=== PATIENT | female | born 1985 | race Caucasian/White ===

== ENCOUNTER 2021-01-06 20:50 | Emergency (ER) | payer OTHER ==
[~2021-01-06 20:50] MED LIST: ATIVAN0.5 MG PO; BENTYL10 MG PO; DESYREL50 MG PO; FLUOXETINE HCL20 M1 PO; K-DUR20 MEQ PO; LEVSIN0.125 MG PO; ONDANSETRON ODT4 MG SL; PREDNISONE 20MG20 MG PO; PRILOSEC20 MG PO; RANITIDINE HCL150 M1 PO; VOLTAREN **OUT75 MG PO
[2021-01-07 02:52] LABS: BILIRUBIN NEGATIVE (NEGATIVE); BLOOD TRACE-INTACT Ery/uL (NEGATIVE); CLARITY CLEAR (CLEAR); COLOR YELLOW (YELLOW); GLUCOSE (U) NORMAL (NORMAL); HCG (URINE) SCREEN NEGATIVE (NEGATIVE); LEUKOCYTES NEGATIVE Leu/uL (NEGATIVE); NITRITE NEGATIVE (NEGATIVE); PROTEIN NEGATIVE (NEGATIVE); SPECIFIC GRAVITY >=1.030 (1.001-1.030); UROBILINOGEN 0.2 mg/dL (0.2-1.0)
[2021-01-07 02:58] LABS: BACTERIA TRACE; SQUAMOUS EPITHELIAL CELLS RARE; URINARY RBC RARE
[2021-01-07 03:04] LABS: BASOPHIL 0.6 % (0-2); HCT 38.8 % (37.0-47.0); HGB 13.1 g/dl (12.5-16.0); LYMPHOCYTE 44.3 % (15-48); MCH 29.3 pg (25.0-31.0); MCHC 33.8 g/dL (32.0-36.0); MCV 86.8 fL (78.0-100.0); MONOCYTE 11.4 % (0-12); MPV 8.8 fL (6.0-9.5); NEUTROPHIL 41.9 % (41-80); NRBC 0; PLT 423 K/uL (150-400); RBC 4.47 M/uL (4.20-5.40); RDW 15.9 % (11.5-14.0); WBC 8.4 K/uL (4.0-10.5)
[2021-01-07 03:13] LABS: ALBUMIN 4.2 g/dL (3.4-5.0); BILIRUBIN - TOTAL 0.3 mg/dL (0.2-1.0); BUN/CREAT RATIO (CALC) 21.8 RATIO; C-REACTIVE PROTEIN 0.2 mg/dL (<=0.90); CREATININE 0.55 mg/dL (0.51-0.95); GLOBULIN (CALCULATION) 3.6 g/dL; POTASSIUM 3.3 mmol/L (3.5-5.1); TOTAL PROTEIN 7.8 g/dL (6.4-8.2)
[2021-01-07] MEDS ORDERED: ROBAXIN750 MG PO (04:49)
[2021-01-07] MEDS ORDERED: ULTRAM50 MG PO (04:49)
== END 2021-01-07 05:14 | disposition home or self-care (01) ==
LOC: FER 20:50
PROVIDERS: Emergency Medicine
DX: R10.84 Generalized abdominal pain (principal); M54.5 Low back pain
CPT/HCPCS: 36415; 80053; 81001; 83880; 84145; 84703; 85025; 86140; J2405; J7030; Q9967

== ENCOUNTER 2021-01-29 03:05 | Emergency (ER) | payer OTHER ==
[~2021-01-29 03:05] MED LIST changes: +ROBAXIN750 MG PO; +ULTRAM50 MG PO
[2021-01-29 04:47] LABS: BASOPHIL 0.5 % (0-2); BILIRUBIN NEGATIVE (NEGATIVE); BLOOD NEGATIVE Ery/uL (NEGATIVE); CLARITY CLEAR (CLEAR); COLOR YELLOW (YELLOW); EOSINOPHIL 1.9 % (0-5); GLUCOSE (U) NORMAL (NORMAL); HCT 37.4 % (37.0-47.0); HGB 12.9 g/dl (12.5-16.0); LEUKOCYTES NEGATIVE Leu/uL (NEGATIVE); LYMPHOCYTE 43.3 % (15-48); MCH 30.4 pg (25.0-31.0); MCHC 34.5 g/dL (32.0-36.0); MCV 88.2 fL (78.0-100.0); MONOCYTE 11.9 % (0-12); MPV 8.7 fL (6.0-9.5); NEUTROPHIL 42.2 % (41-80); NITRITE POSITIVE (NEGATIVE); NRBC 0; PLT 359 K/uL (150-400); PROTEIN NEGATIVE (NEGATIVE); RBC 4.24 M/uL (4.20-5.40); WBC 5.7 K/uL (4.0-10.5)
[2021-01-29 04:53] LABS: BACTERIA 1+; URINARY WBC RARE
[2021-01-29 04:54] LABS: SQUAMOUS EPITHELIAL CELLS RARE
[2021-01-29 05:03] LABS: ALBUMIN 4.2 g/dL (3.4-5.0); BILIRUBIN - TOTAL 0.2 mg/dL (0.2-1.0); BUN/CREAT RATIO (CALC) 16.9 RATIO; CREATININE 0.65 mg/dL (0.51-0.95); GLOBULIN (CALCULATION) 3.2 g/dL; POTASSIUM 4.2 mmol/L (3.5-5.1); TOTAL PROTEIN 7.4 g/dL (6.4-8.2)
[2021-01-29] MEDS ORDERED: LEVSIN-SL0.125 M1 SL (06:52)
[2021-01-29] MEDS ORDERED: DULCOLAX5 MG PO (06:52)
[2021-01-29] MEDS ORDERED: ETODOLAC300 MG PO (07:07)
== END 2021-01-29 07:46 | disposition home or self-care (01) ==
LOC: FER 03:05
PROVIDERS: Emergency Medicine Emergency Medical Services
DX: K59.00 Constipation, unspecified (principal); Z88.5 Allergy status to narcotic agent
CPT/HCPCS: 36415; 74022; 80053; 81001; 83605; 83690; 84145; 85025; 87088; 96372; J0500; J1885

== ENCOUNTER 2021-05-05 11:10 | Emergency (ER) | payer OTHER ==
[~2021-05-05 11:10] MED LIST changes: +DULCOLAX5 MG PO; +ETODOLAC300 MG PO; +LEVSIN-SL0.125 M1 SL
[2021-05-05 13:40] LABS: BASOPHIL 0 % (0-2); EOSINOPHIL 0.5 % (0-5); HCT 38.1 % (37.0-47.0); HGB 13.3 g/dl (12.5-16.0); LYMPHOCYTE 24.7 % (15-48); MCH 30.6 pg (25.0-31.0); MCHC 34.9 g/dL (32.0-36.0); MCV 87.6 fL (78.0-100.0); MONOCYTE 9.6 % (0-12); MPV 8.6 fL (6.0-9.5); NEUTROPHIL 64.7 % (41-80); NRBC 0; PLT 256 K/uL (150-400); RBC 4.35 M/uL (4.20-5.40); WBC 4.3 K/uL (4.0-10.5)
[2021-05-05 14:14] LABS: ALBUMIN 3.5 g/dL (3.4-5.0); BILIRUBIN - TOTAL 0.3 mg/dL (0.2-1.0); BUN/CREAT RATIO (CALC) 9.6 RATIO; CREATININE 0.73 mg/dL (0.51-0.95); GLOBULIN (CALCULATION) 4.7 g/dL; POTASSIUM 3.3 mmol/L (3.5-5.1); TOTAL PROTEIN 8.2 g/dL (6.4-8.2)
[2021-05-05] MEDS ORDERED: PHENERGAN25 M1 PO (14:49)
== END 2021-05-05 15:31 | disposition home or self-care (01) ==
LOC: FER 11:10
PROVIDERS: Internal Medicine
DX: U07.1 COVID-19 (principal); E87.6 Hypokalemia; Z87.19 Personal history of other diseases of the digestive system
CPT/HCPCS: 36415; 80053; 85025; 96372; J2405; J2550; J7120

== ENCOUNTER 2021-06-24 23:10 | Emergency (ER) | payer OTHER ==
[~2021-06-24 23:10] MED LIST changes: +PHENERGAN25 M1 PO
[2021-06-25 02:37] LABS: BASOPHIL 0.6 % (0-2); EOSINOPHIL 3.2 % (0-5); HCT 37.7 % (37.0-47.0); LYMPHOCYTE 34.4 % (15-48); MCH 30.2 pg (25.0-31.0); MCHC 34.5 g/dL (32.0-36.0); MCV 87.5 fL (78.0-100.0); MONOCYTE 8.9 % (0-12); MPV 8.6 fL (6.0-9.5); NEUTROPHIL 52.8 % (41-80); NRBC 0; PLT 395 K/uL (150-400); RBC 4.31 M/uL (4.20-5.40); WBC 7.1 K/uL (4.0-10.5)
[2021-06-25 02:54] LABS: ALBUMIN 4.2 g/dL (3.4-5.0); BILIRUBIN - TOTAL 0.4 mg/dL (0.2-1.0); BUN/CREAT RATIO (CALC) 21.2 RATIO; CREATININE 0.52 mg/dL (0.51-0.95); GLOBULIN (CALCULATION) 4.2 g/dL; POTASSIUM 3.2 mmol/L (3.5-5.1); TOTAL PROTEIN 8.4 g/dL (6.4-8.2)
[2021-06-25 03:16] LABS: BILIRUBIN 1+ mg/dL (NEGATIVE); BLOOD 3+ Ery/uL (NEGATIVE); CLARITY CLEAR (CLEAR); COLOR YELLOW (YELLOW); GLUCOSE (U) NORMAL (NORMAL); LEUKOCYTES NEGATIVE Leu/uL (NEGATIVE); NITRITE NEGATIVE (NEGATIVE); PROTEIN TRACE (LOW) mg/dL (NEGATIVE); SPECIFIC GRAVITY >=1.030 (1.001-1.030); UROBILINOGEN 0.2 mg/dL (0.2-1.0); pH 5.5 (5.0-9.0)
[2021-06-25 03:22] LABS: BACTERIA 2+; SQUAMOUS EPITHELIAL CELLS 20-50
== END 2021-06-25 04:55 | disposition home or self-care (01) ==
LOC: FER 23:10
PROVIDERS: Emergency Medicine
DX: R10.13 Epigastric pain (principal); K21.9 Gastro-esophageal reflux disease without esophagitis
CPT/HCPCS: 36415; 71045; 80053; 81001; 83690; 84484; 85025; 93005